=== PATIENT | male | born 1975 | race Caucasian/White ===

== ENCOUNTER 2024-01-13 08:53 | Outpatient (AMB) | payer OTHER, SELFPAY ==
--- NOTE | 2024-01-13 08:56 | MHC.PC.OV ---
Vital Signs 01/13/24 08:58 Height 6 ft Weight 208 lb BMI 28.2 BP 118/70 Blood Pressure Location Lt brachial Position Sitting Intake Visit Reasons: [employer]CRE[employer]ER[employer]ER, discuss health concerns Admitting Representative Required: No Accompanied by: Self / Same As Patient Allergies No Known Allergies Allergy (Verified 01/13/24 09:05) Medication List - Last Reconciled 01/13/24 by Lena Zuñiga MD atorvastatin 40 mg PO DAILY levothyroxine (Synthroid) 100 mcg PO DAILY Tobacco use date assessed: 01/13/24 Dental Screening Dental Screen Date: 01/13/24 Did you have a dental visit in the last 12 months?: Yes Did you have a dental problem in the last 6 months where you did not have access to dental care?: No Was dental information given to patient?: Patient has dentist HPI HPI Comments History of Present Illness Details This is a 49-year-old male with pure hypercholesterolemia, acquired hypothyroidism and history of melanoma removed that comes today to establish care. As per patient had recent blood work and everything was well control with medications. Fasting labs will be repeated in 6 months. Denies any chest pain or shortness on breath. Had colonoscopy last year in [place] and was normal. Has an appointment with [facility] for next month for yearly checkup. [facility] Surgical History (Updated 01/13/24 @ 09:23 by Lena Zuñiga MD) H/O colonoscopy History of skin surgery Family History Mother Hypothyroid Ovarian cancer Father Hypercholesterolemia Lung cancer Social History Housing: House Alcohol intake: current Alcohol intake frequency: 0-2 drinks per day Alcohol type: beer and wine Patient Tobacco Use Status: Former Tobacco user Tobacco use type: Cigarette e-Cigarette/Vaping Use: Never Used Second Hand Smoke Exposure: No service: No Current occupational status: employed Current occupational exposures/hazards: No Cognitive needs: No Hearing needs: No Vision needs: Yes Questionnaire PHQ-9 Over the last 2 weeks, how often have you been bothered by any of the following problems? 1. Little interest or pleasure in doing things: not at all 2. Feeling down, depressed, or hopeless: not at all 3. Trouble falling or staying asleep, or sleeping too much: not at all 4. Feeling tired or having little energy: not at all 5. Poor appetite or overeating: not at all 6. Feeling bad about yourself - or that you are a failure or have let yourself or your family down: not at all 7. Trouble concentrating on things, such as reading the newspaper or watching television: not at all 8. Moving or speaking so slowly that other people could have noticed. Or the opposite - being so fidgety or restless that you have been moving around a lot more than usual: not at all 9. Thoughts that you would be better off or of hurting yourself in some way: not at all Total score: 0 Depression Screening Interpretation: Negative Depression Screening Done: Yes 03886 - PHQ-9 Billing: Yes Source: Developed by Drs. Horacio Dunn, Diana Melendez, Gary Rosen and colleagues, with an educational teresa from [employer]. Thrive Questionnaire Date Thrive assessed: 01/12/24 I am a: Patient What is your living situation today?: I have a steady place to live Within the past 12 months, did the food you bought not last and you didn't have the money to get more?: Never true Within the past 12 months, did you worry whether your food would run out before you got money to buy more?: Never true Do you have trouble paying for medicines?: No Do you have trouble getting transportation to medical appointments?: No Do you have trouble paying your heating and electricity bill?: No Do you have trouble taking care of your child, family member or friend?: No Do you have trouble with day-to-day activities such as bathing, preparing meals, shopping, managing finances, etc.?: No Are you currently unemployed and looking for a job?: No Are you interested in more education?: No Please select the resources that you would like help with: None Currently or been in a relationship where the following occur: No concerns reported THRIVE Score: 0 AUDIT C Alcohol Use Questionnaire (AUDIT-C) 1. How often do you have a drink containing alcohol?: 2-3 times a week 2. How many drinks containing alcohol do you have on a typical day when you are drinking?: 1 or 2 3. How often do you have six or more drinks on one occasion?: Never Total Score: 3 Score Reviewed/Action Taken: No ARYAN-7 AMB Questionnaire ARYAN-7 Date ARYAN - 7 assessed: 01/13/24 Feeling nervous, anxious, or on edge: 0 = Not at all Not being able to stop or control worryin = Not at all Worrying too much about different things: 0 = Not at all Trouble relaxin = Not at all Being so restless that it is hard to sit still: 0 = Not at all Becoming easily annoyed or irritable: 0 = Not at all Feeling afraid as if something awful might happen: 0 = Not at all Total ARYAN-7 score (0-4 normal; 5-9 mild; 10-14 moderate; 15-21 severe): 0 Source: Developed by Drs. Horacio Dunn, Diana Melendez, Gary Rosen and colleagues, with an educational teresa from [employer]. ARYAN-7 Assessment Billing ARYAN-7 Assessment Tool: ARYAN-7 Assessment 57495 Review of Systems Const All systems reviewed & are unremarkable except as noted in HPI and below Card Denies chest pain at rest, Denies chest pain with activity, Denies edema, Denies irregular heart rhythm, Denies claudication, Denies dyspnea, Denies dyspnea on exertion, Denies orthopnea, Denies paroxysmal nocturnal dyspnea and Denies slow heart rate Resp Denies cough, Denies dyspnea and Denies dyspnea on exertion GI Denies abdominal pain, Denies change in bowel habits, Denies excessive flatus, Denies nausea and Denies vomiting Denies urinary hesitancy, Denies urinary incontinence and Denies urinary urgency Musc Denies abnormal gait, Denies atrophy, Denies deformity and Denies limited range of motion Skin/Breast Denies bleeding lesions, Denies changing lesions and Denies rash Neuro Denies abnormal gait and Denies lack of coordination Physical exam (Primary Care) Vital Signs: Last Vital Signs BP 118/70 01/13/24 08:58 BMI result Body Mass Index 28.2 Tobacco/Smoking Status: Tobacco use Status Tobacco use date assessed 01/13/24 01/13/24 09:04 Patient Tobacco Use Status Former Tobacco user 01/13/24 09:04 Tobacco use type Cigarette 01/13/24 09:04 e-Cigarette/Vaping Use Never Used 01/13/24 09:04 PHQ-9: PHQ-9 Score PHQ-9: Total score 0 01/13/24 09:04 Depression Screening Interpretation: Negative Thrive Assessment: Date of Thrive Assessment Date Thrive assessed 01/12/24 01/13/24 09:04 Currently or been in a relationship where the following occur: No concerns reported Resp Effort & Inspection: normal respiratory effort Auscultation: clear to auscultation bilaterally Cardio Jugular venous distension: no JVD Rate: regular rate Rhythm: regular rhythm Heart sounds: S1 normal heart sound present and S2 normal heart sound present Neuro General: no focal motor deficits Extrem General: Yes full ROM Assessment and Plan Assessment & Plan (1) Acquired hypothyroidism: Code(s): E03.9 - Hypothyroidism, unspecified Plan: Continue levothyroxine. (2) History of melanoma: Code(s): Z85.820 - Personal history of malignant melanoma of skin Plan: Follow-up with dermatology. (3) Pure hypercholesterolemia: Code(s): E78.00 - Pure hypercholesterolemia, unspecified Plan: Continue statins. Orders: Orders Lipid Panel 6 Months E78.00 - Pure hypercholesterolemia, unspecified, E78.5 - Hyperlipidemia, unspecified Comprehensive [place]. Panel Fast 6 Months E78.00 - Pure hypercholesterolemia, unspecified Thyroid Stimulating Hormone 6 Months E03.9 - Hypothyroidism, unspecified Referrals Dermatology Referral Z85.820 - Personal history of malignant melanoma of skin Medications: New atorvastatin 40 mg PO DAILY 90 days 90 tabs 1RF levothyroxine (Synthroid) 100 mcg PO DAILY 90 days 90 tabs 1RF Coding Level of Care Code New Pt Level 3 (23054) Complex EM visit Add On G2211 Diagnoses Acquired hypothyroidism E03.9 History of melanoma Z85.820 Pure hypercholesterolemia E78.00 Additional Codes ARYAN-7 Assessment Billing - ARYAN-7 Assessment Tool: ARYAN-7 Assessment 74167 ([id number]) Time Spent (min) 20
[2024-01-13 08:58] VITALS: BP 118/70; BMI 28.2
== END 2024-01-13 09:18 | disposition home or self-care (01) ==
PROVIDERS: PCP Internal Medicine; Visit Provider Internal Medicine
DX: E03.9 Hypothyroidism, unspecified (principal); Z85.820 Personal history of malignant melanoma of skin; E78.00 Pure hypercholesterolemia, unspecified
CPT/HCPCS: 99203

== ENCOUNTER 2024-06-30 08:56 | Outpatient (REF) | payer OTHER, SELFPAY ==
--- OUTSIDE RECORDS SUMMARY | 2024-06-30 09:21 | XMS_ITS | Continuity of Care Document ---
Author Organization [facility] Address [address] [facility] [place] [address] Phone Care Team Providers Care Well Flow Operator Name Role Phone Odalys Valenzuela OD Unavailable [...] Diagnoses Date Provider Providers Copied on Encounter [facility], [address] [place], [address], [place] tel:[phone] [facility] [place] blurry vision (chief complaint) Presbyopia 5 Nicolas Morrow. [facility], [address] [place] [address], [id number], [place]. tel:[phone] Referring Provider: Odalys Lucio, [address], [address]. tel:[phone] Offic[facility]pt [facility], [address] [place] [address], [id number], [place] tel:[phone] Primary Care [facility] sore throat (chief complaint) No Information 0 No Information Offic/outpt E&m [facility], [address] [place] [address], [address], [place] tel:[phone] Urgent Care sore throat (chief complaint) No Information 0 No Information Offic/outpt E&m [address], [address] [place] [address], [facility], [place] tel:[phone] [facility] No Information 9 Nicolas Morrow. [facility], [address] [place] [address], [id number], [place]. tel:[phone] Referring Provider: Odalys Lucio, [address], [address]. tel:[phone] [facility], [address] [place] [address], [facility], [place] tel:[phone] Radiology [facility] Acute Pharyngitis 6 No Information Referring Provider: Gabriel Mederos, [address], [address]. tel:[phone], [address], [place] tel:[phone] Urgent Care No Information 6 No Information [address], [address], [place] tel:[phone] Primary Care [facility] No Information May-2 7-200 5 No Information Family History Family Member Type Diagnosis Age At Onset Mother Problem (finding) Cancer Payers Payer name Insurance type Covered republican ID Tiago paul(s) [employer] [id number] Social History Type Description Quantity Date Captured [...]
[2024-06-30 11:07] LABS: Alanine Aminotransferase 26 U/L (0-40); Albumin Level 3.6 g/dL (3.5-5.0); Alkaline Phosphatase 75 U/L (39-117); Anion Gap 8 (12-20); Aspartate Amino Transferase 23 U/L (5-37); Bilirubin Total 0.4 mg/dL (0.0-1.0); Blood Urea Nitrogen 12 mg/dL (9-16); Calcium 8.8 mg/dL (8.4-10.2); Carbon Dioxide 28 mmol/L (22-29); Chloride 108 mmol/L (96-108); Cholesterol 140 mg/dL (<200); Estimated Glomerular Filt Rate > 60; Glucose Fasting 96 mg/dL (60-99); HDL Cholesterol 41 mg/dL (>40); LDL Cholesterol Calculated 83 mg/dL (<100); Potassium 4.3 mmol/L (3.3-5.1); Sodium 140 mmol/L (135-145); Thyroid Stimulating Hormone 3.04 uIU/mL (0.32-4.0); Total Protein 7.3 g/dL (6.5-8.0); Triglycerides 84 mg/dL (<150)
== END 2024-06-30 08:57 | disposition home or self-care (01) ==
LOC: HO.10HDL 08:56
PROVIDERS: Visit Provider Internal Medicine
DX: E78.00 Pure hypercholesterolemia, unspecified (principal); E78.5 Hyperlipidemia, unspecified; E03.9 Hypothyroidism, unspecified
CPT/HCPCS: 36415; 80053; 80061; 84443

== ENCOUNTER 2024-10-09 08:48 | Outpatient (AMB) | payer OTHER, SELFPAY ==
--- NOTE | 2024-10-09 08:53 | MHC.PC.OV ---
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 Accompanied by: Self / Same As Patient Allergies levothyroxine Allergy (Severe, Verified 10/09/24 09:23) Hives, acne Medication List - Last Reconciled 10/09/24 by Lena Zuñiga MD atorvastatin 40 mg PO DAILY 90 days levothyroxine (Synthroid) 100 mcg PO DAILY 90 days Tobacco use date assessed: 10/09/24 Dental Screening Dental Screen Date: 10/09/24 Did you have a dental visit in the last 12 months?: Yes Did you have a dental problem in the last 6 months where you did not have access to dental care?: No Was dental information given to patient?: Patient has dentist HPI HPI Comments History of Present Illness Details The patient is a 49-year-old male presenting for a routine physical examination with a history of hypothyroidism and hypercholesterolemia. He has been on Synthroid 100 mcg for five years following intolerance to levothyroxine, which caused acne. Currently, hypothyroidism and hypercholesterolemia are well-managed on Synthroid and atorvastatin 40 mg. The patient underwent a normal colonoscopy this year and is monitored annually for melanoma by dermatology. He does regular manual labor and noticed a non-tender hand lump, suspected to be a callus or calcification. Past bloodwork results were satisfactory, and he maintains yearly dermatological assessments. - Normal colonoscopy in 2022 - Annual dermatology follow-up post-melanoma removal - Last thyroid function test normal in June - Cholesterol levels well controlled by atorvastatin [facility] Surgical History H/O colonoscopy History of skin surgery Family History Mother Hypothyroid Ovarian cancer Father Hypercholesterolemia Lung cancer Social History Housing: House Alcohol intake: current Alcohol intake frequency: 0-2 drinks per day Alcohol type: beer and wine Patient Tobacco Use Status: Former Tobacco user Tobacco use type: Cigarette e-Cigarette/Vaping Use: Never Used Second Hand Smoke Exposure: No service: No Current occupational status: employed Current occupational exposures/hazards: No Cognitive needs: No Hearing needs: No Vision needs: Yes Questionnaire PHQ-9 Over the last 2 weeks, how often have you been bothered by any of the following problems? 1. Little interest or pleasure in doing things: not at all 2. Feeling down, depressed, or hopeless: not at all 3. Trouble falling or staying asleep, or sleeping too much: not at all 4. Feeling tired or having little energy: not at all 5. Poor appetite or overeating: not at all 6. Feeling bad about yourself - or that you are a failure or have let yourself or your family down: not at all 7. Trouble concentrating on things, such as reading the newspaper or watching television: not at all 8. Moving or speaking so slowly that other people could have noticed. Or the opposite - being so fidgety or restless that you have been moving around a lot more than usual: not at all 9. Thoughts that you would be better off or of hurting yourself in some way: not at all Total score: 0 Depression Screening Interpretation: Negative Depression Screening Done: Yes 69101 - PHQ-9 Billing: Yes Source: Developed by Drs. Horacio Dunn, Diana Melendez, Gary Rosen and colleagues, with an educational teresa from [employer]. Thrive Questionnaire Date Thrive assessed: 10/02/24 I am a: Patient What is your living situation today?: I have a steady place to live Within the past 12 months, did the food you bought not last and you didn't have the money to get more?: Never true Within the past 12 months, did you worry whether your food would run out before you got money to buy more?: Never true Do you have trouble paying for medicines?: No Do you have trouble getting transportation to medical appointments?: No Do you have trouble paying your heating and electricity bill?: No Do you have trouble taking care of your child, family member or friend?: No Do you have trouble with day-to-day activities such as bathing, preparing meals, shopping, managing finances, etc.?: No Are you currently unemployed and looking for a job?: No Are you interested in more education?: No Please select the resources that you would like help with: None Currently or been in a relationship where the following occur: No concerns reported THRIVE Score: 0 AUDIT C Alcohol Use Questionnaire (AUDIT-C) 1. How often do you have a drink containing alcohol?: 2-3 times a week 2. How many drinks containing alcohol do you have on a typical day when you are drinking?: 1 or 2 3. How often do you have six or more drinks on one occasion?: Never Total Score: 3 ARYAN-7 AMB Questionnaire ARYAN-7 Date ARYAN - 7 assessed: 10/09/24 Feeling nervous, anxious, or on edge: 0 = Not at all Not being able to stop or control worryin = Not at all Worrying too much about different things: 0 = Not at all Trouble relaxin = Not at all Being so restless that it is hard to sit still: 0 = Not at all Becoming easily annoyed or irritable: 0 = Not at all Feeling afraid as if something awful might happen: 0 = Not at all Total ARYAN-7 score (0-4 normal; 5-9 mild; 10-14 moderate; 15-21 severe): 0 Source: Developed by Drs. Horacio Dunn, Diana Melendez, Gary Rosen and colleagues, with an educational teresa from [employer]. ARYAN-7 Assessment Billing ARYAN-7 Assessment Tool: ARYAN-7 Assessment 35616 Review of Systems Const All systems reviewed & are unremarkable except as noted in HPI and below Card Denies chest pain at rest, Denies chest pain with activity, Denies edema, Denies irregular heart rhythm, Denies claudication, Denies dyspnea, Denies dyspnea on exertion, Denies orthopnea, Denies paroxysmal nocturnal dyspnea and Denies slow heart rate Resp Denies cough, Denies dyspnea and Denies dyspnea on exertion GI Denies abdominal pain, Denies change in bowel habits, Denies excessive flatus, Denies nausea and Denies vomiting Denies urinary hesitancy, Denies urinary incontinence and Denies urinary urgency Musc Denies abnormal gait, Denies atrophy, Denies deformity and Denies limited range of motion Skin/Breast Denies bleeding lesions, Denies changing lesions and Denies rash Neuro Denies abnormal gait, Denies behavioral changes and Denies lack of coordination Psych Denies behavioral changes Physical exam (Primary Care) Vital Signs: Last Vital Signs BP 110/70 10/09/24 08:55 BMI result Body Mass Index 27.9 Tobacco/Smoking Status: Tobacco use Status Tobacco use date assessed 10/09/24 10/09/24 08:59 Patient Tobacco Use Status Former Tobacco user 10/09/24 08:56 Tobacco use type Cigarette 10/09/24 08:56 e-Cigarette/Vaping Use Never Used 10/09/24 08:56 PHQ-9: PHQ-9 Score PHQ-9: Total score 0 10/09/24 08:56 Depression Screening Interpretation: Negative Thrive Assessment: Date of Thrive Assessment Date Thrive assessed 10/02/24 10/09/24 08:56 Currently or been in a relationship where the following occur: No concerns reported HENMT Head: Yes normal to inspection, Yes normocephalic and Yes atraumatic Ears: external ears normal Eyes General: appearance normal, both eyes and all related structures Eyelids: Yes eyelids normal Conjunctivae: conjunctivae normal Neck Neck: Yes normal visual inspection and Yes supple Resp Effort & Inspection: normal respiratory effort Auscultation: clear to auscultation bilaterally Cardio Jugular venous distension: no JVD Rate: regular rate Rhythm: regular rhythm Heart sounds: S1 normal heart sound present and S2 normal heart sound present GI Inspection: Yes normal to inspection Palpation (GI): Soft to palpation and nontender Auscultation: normal bowel sounds Skin General skin exam: no rashes or lesions noted Neuro General: no focal motor deficits Extrem General: Yes full ROM Psych Appearance: grossly normal Coding Level of Care Code Est Pt Prev Care 40-64y(79035) Diagnoses Physical exam Z00.00 Additional Codes PHQ-9 - 03450 - PHQ-9 Billing: Yes ([id number]) ARYAN-7 Assessment Billing - ARYAN-7 Assessment Tool: ARYAN-7 Assessment 25242 ([id number]) Time Spent (min) 30 Assessment & Plan Assessment & Plan (1) Physical exam: Code(s): Z00.00 - Encounter for general adult medical examination without abnormal findings Category: Medical Plan Continuing Synthroid 100 mcg will manage hypothyroidism effectively, given the patient's past intolerance to generic levothyroxine, which led to acne. We will arrange prior authorization for Synthroid to ease insurance coverage. Atorvastatin 40 mg will remain unchanged for hypercholesterolemia, with bloodwork planned again in six months. The hand lump, suggestive of a callus, requires no intervention unless symptomatic. Annual dermatological follow-up is advised due to previous melanoma removal. Prescriptions and 90-day Synthroid supply were addressed, emphasizing the importance of maintaining ongoing screenings. Patient was informed and verbally consented to the use of an ambient scribe for clinic note documentation during this visit. I explained the rationale for maintaining Synthroid 100 mcg for hypothyroidism, considering prior intolerance to levothyroxine. We reviewed insurance needs for Synthroid coverage and its advantages in managing thyroid function. The current management of hypercholesterolemia with atorvastatin 40 mg was affirmed, incorporating future lab monitoring. The hand lump was identified as benign, likely a callus from manual labor. I advised dermatological follow-up and reiterated regular skin checks due to previous melanoma. I recommended routine screenings, including thyroid function tests in six months, and discussed the necessity of authorization processes for Synthroid provision. Orders: Orders Thyroid Stimulating Hormone 6 Months E03.9 - Hypothyroidism, unspecified Medications: Changed From levothyroxine (Synthroid) 100 mcg PO DAILY 90 days 90 tabs 1RF To Synthroid (levothyroxine) 100 mcg PO DAILY 90 days 90 tabs 1RF NS Patient Instructions: - Continue Synthroid 100 mcg and atorvastatin 40 mg as directed - Schedule thyroid check in six months - Maintain annual dermatology follow-ups - Monitor the hand lump for changes; seek evaluation if symptoms arise - Complete prior authorization paperwork for Synthroid coverage - Continue moderation in alcohol consumption
[2024-10-09 08:55] VITALS: BP 110/70; BMI 27.9
--- OUTSIDE RECORDS SUMMARY | 2024-10-09 09:13 | XMS_ITS | Continuity of Care Document ---
Author Organization [facility] Address [address] [place] [address] Phone Care Team Providers Care Deburrer Strip Name Role Phone Odalys Valenzuela OD Unavailable [...] Diagnoses Date Provider Providers Copied on Encounter [facility], [address] [place], [address], [place] tel:[phone] [facility] [place] blurry vision (chief complaint) Presbyopia 5 Nicolas Morrow. [facility], [address] [place] [address], [id number], [place]. tel:[phone] Referring Provider: Odalys Lucio, [address], [address]. tel:[phone] [facility]outpt [facility] [address] [place] [address], [id number], [place] tel:[phone] [facility] sore throat (chief complaint) No Information 0 No Information Offic/outpt E&[facility], [address] [place] [address], [id number], [place] tel:[phone] Urgent Care sore throat (chief complaint) No Information 0 No Information Offic/outpt E&m [address], [address] [place] [address], [facility], [place] tel:[phone] [facility] No Information 9 Nicolas Morrow. [facility], [address] [place] [address], [id number], [place]. tel:[phone] Referring Provider: Odalys Lucio, [address], [address]. tel:[phone] [facility], [address] [place] [address], [facility], [place] tel:[phone] Radiology [facility] Acute Pharyngitis 6 No Information Referring Provider: Gabriel Mederos, [address], [address]. tel:[phone], [address], [place] tel:[phone] Urgent Care No Information 6 No Information [address], [address], [place] tel:[phone] [facility] No Information May-2 7-200 5 No Information Family History Family Member Type Diagnosis Age At Onset Mother Problem (finding) Cancer Payers Payer name Insurance type Covered constitution party ID Tiago paul(s) [employer] [id number] Social History Type Description Quantity Date Captured [...]
== END 2024-10-09 09:22 | disposition home or self-care (01) ==
LOC: HO.HMCH 08:49
PROVIDERS: PCP Internal Medicine; Visit Provider Internal Medicine
DX: Z00.00 Encounter for general adult medical examination without abnormal findings (principal)

== ENCOUNTER → 2024-10-09 08:48 | Outpatient (BNVA) | payer OTHER, SELFPAY | PROVIDERS: PCP Internal Medicine; Visit Provider Internal Medicine | DX: Z00.00 Encounter for general adult medical examination without abnormal findings (principal); E03.9 Hypothyroidism, unspecified; E78.00 Pure hypercholesterolemia, unspecified; Z79.899 Other long term (current) drug therapy | CPT/HCPCS: 96127 ==

== ENCOUNTER 2025-04-10 07:40 | Outpatient (AMB) | payer OTHER, SELFPAY ==
--- OUTSIDE RECORDS SUMMARY | 2014-09-17 09:44 | XMS_ITS | Continuity of Care Document ---
Author Organization [facility] Address [address] [facility] [place] [address] Phone Care Team Providers Care Starch Crab Name Role Phone Odalys Valenzuela OD Unavailable Unavailabl e Allergies, Adverse Reactions, Alerts Substance Reaction Status Criticality No Known Drug Allergies Active No I nformation Medications Medication Instructions Dosage Effective Dates (start - stop) Status Comments Augmentin 875 mg-125 mg Tab one po bid with food - No Longer Active Problems Condition Type Effective Dates (start - stop) Clini brianna Status Comments No Known Problems Procedures Procedure Date Ophth Serv Med Exam Comp New Determ Refractive State Agt-immunassay Dir Obs; Strep 0 Offic/outpt E&m Estab Low-mod 0 Agt-immunassay Dir Obs; Strep 0 Offic/outpt E&m Estab Low-mod 0 Offic/outpt E&m New Low-mod 09 UC Off/outpt E&m Est Low-mod Albuterol, Inhaled 1mg Nonpress Inhala Tx Acute Airwa 06 Noninvas Oximetry-o2 Sat; 1 De 06 Advance Directives Directive Yes / No Effective Date File Name No Information Encounters Encounter Description Practice Location Reason(s) For Visit Diagnoses Date Provider Providers Copied on Encounter [facility], [address] [place], [address], [place] tel:[phone] [facility] [place] blurry vision (chief complaint) Presbyopia 5 Nicolas Morrow. [facility], [address] [place] [address], [id number], . tel:[phone] Referring Provider: Odalys Lucio, [address], [address]. tel:[phone] Offic/outpt E&m [facility], [address] [place] [address], [facility], [place] tel:[phone] Primary Care [facility] sore throat (chief complaint) No Information 0 No Information Offic/outpt E&m [facility], [address] [place] [address], [facility], [place] tel:[phone] Urgent Care sore throat (chief complaint) No Information 0 No Information Offic/outpt E&m [address], [address] [place] [address], [facility], tel:[phone] [facility] No Information 9 Nicolas Morrow. [facility], [address] [place] [address], [id number], [place]. tel:[phone] Referring Provider: Odalys uLcio, [address], [address]. tel:[phone] [facility], [address] [place] [address], [facility], [place] tel:[phone] Radiology [facility] Acute Pharyngitis 6 No Information [facility], [address] [place] [address], [facility], [place] tel:[phone] Urgent Care No Information 6 No Information [facility], [address] [place] [address], [facility], [place] tel:[phone] Primary Care [facility] No Information 5 No Information Family History Family Member Type Diagnosis Age At Onset Mother Problem (finding) Cancer Payers Payer name Insurance type Covered constitution party ID Authoriza tion(s) [employer] [id number] Social History Type Description Quantity Date Captured Comments Alcohol Use Details Unknown Caffeine Use Details Unknown Tobacco Use Status Never smoked tobacco 2014 Smoking Status Never smoker Non-Smoking Tobacco Use Details : No Details Available : No Details Available Sex Male Vital Signs Date / Time: Height Weight BMI Pulse Rate Blood Pressure Temperature Respiratory Rate Body Surface Area Head Circumference Head Circ. Percentile Wt./Lopez. Percentile BMI percentile Pulse Ox Inhaled Ox 2:59 PM 108/57 mm[Hg] Chief Complaint And Reason For Visit From encounter dated '09/17/2014 14:44'. blurry vision (chief complaint). Description: The 39 year old male presents for evaluation of blurry vision in the right eye and left eye. It started about 2 year(s) ago. It occurs doing close work. The onset was gradual. It affects near vision. The symptom is constant. The condition is not any better. Reason For Referral Reason For Referral No Information Plan Of Treatment Date Type Action Status Patient Education Presbyopia: After Your Visit completed History Of Present Illness Encounter Date Complaint History Of Prese nt Illness blurry vision The 39 year old male presents for evaluation of blurry vision in the right eye and left eye. It started about 2 year(s) ago. It occurs doing close work. The onset was gradual. It affects near vision. The symptom is constant. The condition is not any better. Functional Status Date Functional Assessmen t No Information Medications Administered Medication Instructions Dosage Effective Dates (start - stop) Status Comments No Drug Therapy Prescribed Instructions Date Instruction Additional Infor lesley - Return in 2 years for Adult Exam with Dr. Valenzuela Related to Presbyopia - New glasses Rx was given today---NVO Recommended/prefers over the counter readers +1.00/+1.25 Related to Presbyopia Asthenopia, OS Related to Asthe nopia Assessments Type Assessment Date assessment Presbyopia Patient Care Teams Name Effective Dates (start - stop) Status Members No Information
[2025-04-10 07:52] VITALS: BP 122/68; PULSE 78; O2SAT 98; BMI 27.8
--- NOTE | 2025-04-10 07:52 | A.OFFPC_ITS ---
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 The patient has a known allergy to generic levothyroxine, which causes hives and acne, and is currently taking Synthroid 100 mcg daily in addition to atorvastatin 40 mg daily for hyperlipidemia, reporting adherence to the regimen. Labs from June were noted to be normal, including kidney function, liver enzymes, protein, and a blood sugar of 96, with excellent cholesterol and good thyroid levels. For the last month, the patient has experienced a faint, dull ache in the abdomen, which sometimes feels like it involves the left testicle. This intermittent pain is rated 1-2 out of 10 and is not exacerbated by physical activity but is noticed during quiet moments, such as when lying down or driving. There is no associated nausea, vomiting, diarrhea, or constipation. The patient also reports a low back strain that occurred a few weeks ago. This is a recurrent issue, with similar episodes in the patient's 20s, 30s, 40s, and again in December of this year. The pain is localized to the lower back and does not radiate to the legs, and there is no associated fever, bowel or bladder incontinence, or numbness. Past medical history is significant for melanoma on the calf 10 years ago, for which the patient sees a catcher helper every six months. A new spot was recently found, and the patient is awaiting a Mohs consultation. The patient's father had a hernia at a similar age. The patient is up to date on the flu shot for this year. [facility] Surgical History H/O colonoscopy History of skin surgery Family History Mother Hypothyroid Ovarian cancer Father Hypercholesterolemia Lung cancer Social History Housing: House Alcohol intake: current Alcohol intake frequency: 0-2 drinks per day Alcohol type: beer and wine Patient Tobacco Use Status: Former Tobacco user Tobacco use type: Cigarette e-Cigarette/Vaping Use: Never Used Second Hand Smoke Exposure: No service: No Current occupational status: employed Current occupational exposures/hazards: No Cognitive needs: No Hearing needs: No Vision needs: Yes Questionnaire Thrive Questionnaire Date Thrive assessed: 10/02/24 I am a: Patient What is your living situation today?: I have a steady place to live Within the past 12 months, did the food you bought not last and you didn't have the money to get more?: Never true Within the past 12 months, did you worry whether your food would run out before you got money to buy more?: Never true Do you have trouble paying for medicines?: No Do you have trouble getting transportation to medical appointments?: No Do you have trouble paying your heating and electricity bill?: No Do you have trouble taking care of your child, family member or friend?: No Do you have trouble with day-to-day activities such as bathing, preparing meals, shopping, managing finances, etc.?: No Are you currently unemployed and looking for a job?: No Are you interested in more education?: No Please select the resources that you would like help with: None Currently or been in a relationship where the following occur: No concerns reported THRIVE Score: 0 ARYAN-7 AMB Questionnaire ARYAN-7 Date ARYAN - 7 assessed: 10/09/24 Source: Developed by Drs. Horacio Dunn, Diana Melendez, Gary Rosen and colleagues, with an educational teresa from [employer]. Review of Systems Const All systems reviewed & are unremarkable except as noted in HPI and below Card Denies chest pain at rest, Denies chest pain with activity, Denies edema, Denies irregular heart rhythm, Denies claudication, Denies dyspnea, Denies dyspnea on exertion, Denies orthopnea, Denies paroxysmal nocturnal dyspnea and Denies slow heart rate Resp Denies cough, Denies dyspnea and Denies dyspnea on exertion GI Denies abdominal pain, Denies change in bowel habits, Denies excessive flatus, Denies nausea and Denies vomiting Physical exam (Primary Care) Vital Signs: Last Vital Signs Pulse 78 04/10/25 07:52 BP 122/68 04/10/25 07:52 Pulse Ox 98 04/10/25 07:52 Oxygen Delivery Method Room Air 04/10/25 07:52 BMI result Body Mass Index 27.8 Tobacco/Smoking Status: Tobacco use Status Tobacco use date assessed 10/09/24 04/10/25 07:52 Patient Tobacco Use Status Former Tobacco user 04/10/25 07:52 Tobacco use type Cigarette 04/10/25 07:52 e-Cigarette/Vaping Use Never Used 04/10/25 07:52 Thrive Assessment: Date of Thrive Assessment Date Thrive assessed 10/02/24 04/10/25 07:52 Currently or been in a relationship where the following occur: No concerns reported Resp Effort & Inspection: normal respiratory effort Auscultation: clear to auscultation bilaterally Cardio Jugular venous distension: no JVD Rate: regular rate Rhythm: regular rhythm Heart sounds: S1 normal heart sound present and S2 normal heart sound present GI Palpation (GI): Tenderness to palpation present (GI) in the LLQ Extrem General: Yes full ROM Coding Level of Care Code Est Pt Level 4 (99733) Diagnoses Lumbar pain M54.50 Left lower quadrant abdominal pain R10.32 Acquired hypothyroidism E03.9 Pure hypercholesterolemia E78.00 Time Spent (min) 20 Assessment & Plan Assessment & Plan (1) Lumbar pain: Code(s): M54.50 - Low back pain, unspecified Category: Medical (2) Left lower quadrant abdominal pain: Code(s): R10.32 - Left lower quadrant pain Category: Medical (3) Acquired hypothyroidism: Code(s): E03.9 - Hypothyroidism, unspecified Category: Medical (4) Pure hypercholesterolemia: Code(s): E78.00 - Pure hypercholesterolemia, unspecified Category: Medical Plan Plan 1. Hypothyroidism The patient is stable on Synthroid 100 mcg daily. Due to a prior medication change, thyroid function tests will be checked today. Medication will be adjusted if necessary based on the results. 2. Hyperlipidemia The patient reports adherence to atorvastatin 40 mg daily, and prior cholesterol levels were excellent. Lipid panel, along with metabolic panel, will be checked in six months. 3. Abdominal Pain, Left Lower Quadrant The patient presents with a one-month history of faint, dull, intermittent pain in the left lower abdomen, sometimes involving the left testicle. To further evaluate the etiology, an ultrasound of the abdomen with a focus on the left lower quadrant will be ordered. 4. Low Back Pain The patient has a history of recurrent, localized low back strain without red flag symptoms. A referral will be placed for physical therapy. 5. Personal History Of Malignant Melanoma Of Skin The patient has a history of melanoma and is under regular dermatologic surveillance. The patient is pending a Mohs consultation for a newly identified spot and will continue with this planned follow-up. Orders: Orders PT Evaluation and Treatment Today M54.50 - Low back pain, unspecified Comprehensive [place]. Panel Fast 6 Months Z00.00 - Encounter for general adult medical examination without abnormal findings US abdomen limited Today R10.32 - Left lower quadrant pain Lipid Panel 6 Months E78.5 - Hyperlipidemia, unspecified, Z00.00 - Encounter for general adult medical examination without abnormal findings Thyroid Stimulating Hormone 6 Months E03.9 - Hypothyroidism, unspecified Thyroid Stimulating Hormone 1 Day E03.9 - Hypothyroidism, unspecified
== END 2025-04-10 08:19 | disposition home or self-care (01) ==
LOC: HO.HMCH 07:41
PROVIDERS: PCP Internal Medicine; Visit Provider Internal Medicine
DX: M54.50 Low back pain, unspecified (principal); R10.32 Left lower quadrant pain; E03.9 Hypothyroidism, unspecified; E78.00 Pure hypercholesterolemia, unspecified